=== PATIENT | female | born 1985 | race Caucasian/White ===

== ENCOUNTER 2019-01-12 08:00 | Outpatient (CLI) | payer OTHER | END 2019-01-12 23:59 | disposition home or self-care (01) | LOC: LAB.WCP 08:00 | PROVIDERS: ATTEND Nurse Practitioner Obstetrics & Gynecology | DX: O46.91 Antepartum hemorrhage, unspecified, first trimester (principal) | CPT/HCPCS: 36415; 84702; 86850; 86900; 86901 ==

== ENCOUNTER 2019-01-14 14:50 | Outpatient (CLI) | payer OTHER | END 2019-01-14 14:51 | disposition home or self-care (01) | LOC: LAB.WCP 14:50 | PROVIDERS: ATTEND Nurse Practitioner Obstetrics & Gynecology | DX: O46.91 Antepartum hemorrhage, unspecified, first trimester (principal) | CPT/HCPCS: 36415; 84702 ==

== ENCOUNTER 2019-01-15 16:22 | Outpatient (CLI) | payer OTHER ==
--- NOTE | 2019-01-15 18:30 | Ultrasound Report ---
Reason: FIRST TRIMESTER VAGINAL BLEED Procedure Date: 01/15/2019 Accession Number: [id number] / [id number] Procedure: US - OB First Trimester CPT Code: FULL RESULT: EXAM: FIRST TRIMESTER OBSTETRIC ULTRASOUND (Less than 11 weeks) EXAM DATE: 01/15/2019 04:57 PM. CLINICAL HISTORY: FIRST TRIMESTER VAGINAL BLEED. LMP: 11/05/2018. COMPARISONS: None. TECHNIQUE: Transabdominal and transvaginal ultrasound examination with static image documentation. CLINICAL DATES: EGA 10 weeks 1 day with ALEXEI 08/12/2019 based on LMP. ASSESSMENT: Gestational Sac: Single intrauterine. Embryo: CRL (crown-rump length) 41 mm = 11 weeks 0 days. Cardiac activity: 154 beats per minute. Yolk sac: 6 mm. Amniotic fluid: Not accurately assessed at this gestational age. Early placenta: Posterior placenta seen. Other: No perigestational fluid collection demonstrated. MATERNAL STRUCTURES: Uterus: Anteverted. Unremarkable. Cervix: Closed. Right Ovary/Adnexa: The ovary measures 3.5 x 1.3 x 1.3 cm, volume 3.1 cc. Unremarkable. Left Ovary/Adnexa: The ovary measures 3.4 x 2.4 x 2.4 cm, volume 10 cc. 1.6 x 1.7 x 1.9. Free Fluid: None. Other: Trace endocervical fluid with hyperechoic focus likely blood products. IMPRESSION: 1. Single viable intrauterine at EGA 11 weeks 0 days with ALEXEI 08/06/2019 based on crown-rump length. 2. Normal ovaries. 3. Trace endocervical fluid. [facility] The call report notification system was initiated by Dr. Travis Suárez at 06:28 PM on 01/15/2019.
== END 2019-01-15 16:23 | disposition home or self-care (01) ==
LOC: DI 16:22
PROVIDERS: ATTEND Obstetrics & Gynecology
DX: O46.91 Antepartum hemorrhage, unspecified, first trimester (principal); Z3A.11 11 weeks gestation of pregnancy
CPT/HCPCS: 76801; 76817

== ENCOUNTER 2019-01-22 08:00 | Outpatient (CLI) | payer OTHER ==
[2019-01-22 17:25] LABS: MUDS CUTOFF CONCENTRATIONS CUTOFF CONC BELOW:
[2019-01-22 17:50] LABS: BILIRUBIN,URINE NEGATIVE (NEGATIVE); GLUCOSE, URINE (UA) NEGATIVE (NEGATIVE); KETONES,URINE (UA) NEGATIVE (NEGATIVE); LEUKOCYTE ESTERASE, URINE NEGATIVE (NEGATIVE); NITRITE,URINE NEGATIVE (NEGATIVE); OCCULT BLOOD,URINE NEGATIVE (NEGATIVE); PROTEIN,URINE NEGATIVE (NEGATIVE); UROBILINOGEN,URINE 0.2 (NORMAL) E.U./dL (NORMAL)
[2019-01-22 18:06] LABS: AMPHETAMINE SCREEN,URINE NEGATIVE (NEGATIVE); BENZODIAZEPINES SCREEN, URINE NEGATIVE (NEGATIVE); COCAINE SCREEN URINE NEGATIVE (NEGATIVE); METHADONE SCREEN, URINE NEGATIVE (NEGATIVE); METHAMPHETAMINES SCREEN, URINE NEGATIVE (NEGATIVE); OPIATE SCREEN, URINE NEGATIVE (NEGATIVE); OXYCODONE SCREEN, URINE NEGATIVE (NEGATIVE); PROPOXYPHENE SCREEN, URINE NEGATIVE (NEGATIVE); TRICYCLIC ANTIDEPRESSANT,URINE NEGATIVE (NEGATIVE)
[2019-01-22 18:08] LABS: CLARITY,URINE HAZY (CLEAR)
[2019-01-22 18:21] LABS: BACTERIA,URINE Many /HPF (None Seen); MUCUS,URINE Few Strands; RBC,URINE None Seen /HPF (0-5); SQUAMOUS EPITHELIAL CELL,UR MANY Squamous (<= Few)
== END 2019-01-22 23:59 | disposition home or self-care (01) ==
LOC: LAB.R 08:00
PROVIDERS: ATTEND Nurse Practitioner Obstetrics & Gynecology
DX: Z36.89 Encounter for other specified antenatal screening (principal)
CPT/HCPCS: 36415; 80306; 81001; 81599; 85025; 86592; 86762; 86803; 86850; 86900; 86901; 87086; 87340; 87389

== ENCOUNTER 2019-01-22 08:00 | Outpatient (CLI) | payer OTHER ==
[2019-01-22 18:47] LABS: BASOPHILS % (AUTO) 0.3 %; EOSINOPHILS # (AUTO) 0.1 10^3/uL (0.0-0.7); EOSINOPHILS % (AUTO) 0.7 %; HGB - HEMOGLOBIN 12.9 g/dL (12.0-16.0); LYMPHOCYTES # (AUTO) 1.9 10^3/uL (1.5-3.5); LYMPHOCYTES % (AUTO) 25.6 %; MEAN CORPUSCULAR HEMOGLOBIN 30.4 pg (27.0-31.0); MEAN CORPUSCULAR HGB CONC 32.9 g/dL (32.0-36.0); MEAN CORPUSCULAR VOLUME 92.4 fL (81.0-99.0); MEAN PLATELET VOLUME 7.8 fL (7.9-10.8); MONOCYTES # (AUTO) 0.5 10^3/uL (0.0-1.0); MONOCYTES % (AUTO) 6.8 %; NEUTROPHILS # (AUTO) 4.9 10^3/uL (1.5-6.6); NEUTROPHILS % (AUTO) 66.6 %; PLT - PLATELET COUNT 289 10^3/uL (130-450); RED BLOOD COUNT 4.23 10^6/uL (4.20-5.40); RED CELL DISTRIBUTION WIDTH 13.8 % (12.0-15.0); WHITE BLOOD COUNT 7.4 x10^3/uL (4.8-10.8)
[2019-01-23 10:07] LABS: HEPATITIS C ANTIBODY NON-REACTIVE (NON-REACTIVE)
[2019-01-23 10:08] LABS: HEPATITIS B SURFACE ANTIGEN NON-REACTIVE (NON-REACTIVE)
[2019-01-23 13:17] LABS: HIV AG/AB 4TH GEN NON-REACTIVE (NON-REACTIVE)
== END 2019-01-22 23:59 | disposition home or self-care (01) ==
LOC: LAB.WCP 08:00
PROVIDERS: ATTEND Nurse Practitioner Obstetrics & Gynecology
DX: Z36.89 Encounter for other specified antenatal screening (principal)
CPT/HCPCS: 36415; 81599; 85025; 86762; 86803; 86850; 86900; 86901; 87340; 87389

== ENCOUNTER 2019-01-26 07:13 | Outpatient (CLI) | payer SELFPAY | END 2019-01-26 07:14 | disposition home or self-care (01) | LOC: LAB 07:13 | PROVIDERS: ATTEND Nurse Practitioner Obstetrics & Gynecology | DX: Z36.8A Encounter for antenatal screening for other genetic defects (principal) | CPT/HCPCS: 36415 ==

== ENCOUNTER 2019-04-02 13:32 | Outpatient (CLI) | payer OTHER ==
--- NOTE | 2019-04-04 14:58 | Ultrasound Report ---
Reason: SCREENING,OTHER SPECIFIED Procedure Date: 04/02/2019 Accession Number: [id number] / [id number] Procedure: US - OB Detailed Eval CPT Code: FULL RESULT: EXAM: COMPLETE OBSTETRICAL ULTRASOUND EXAM DATE: 04/02/2019 04:33 PM. CLINICAL HISTORY: anatomic survey. COMPARISON: 01/15/2019. TECHNIQUE: Real-time sonographic evaluation of the fetus performed by the mapping analyst. Multiple insurance representative static images were saved for review. DATING: Established EGA 21 weeks 1 day with ALEXEI 08/12/2019 based on stated due date. EGA weeks/days with ALEXEI based on LMP/prior ultrasound/other. EGA 21 weeks 3 days with ALEXEI 08/10/2019 based on the current ultrasound. GENERAL EVALUATION [place] . Cardiac activity: 151 bpm. movement: Visualized. Presentation: Cephalic. Placenta: Posterior position. No evidence for previa. Umbilical cord: 3 vessel cord. Central placental cord origin. Amniotic fluid: Subjectively normal. MVP 4.0 cm. VIRGEN 13.8 cm. BIOMETRY Bi-Parietal Diameter (BPD): 4.9 cm, 20 weeks 6 days Head Circumference (HC): 19.8 cm, 22 weeks 0 days Abdominal Circumference (AC): 17.2 cm, 22 weeks 1 day Femur Length (FL): 3.7 cm, 21 weeks 5 days Estimated Weight: 457 g, 82 percentile. ANATOMY The four-chamber heart, LVOT and RVOT were not adequately visualized on this study. The intracranial structures, profile, face/nose/lips, spine, stomach, abdominal wall and cord insertion, diaphragm, kidneys, bladder, and extremities were visualized and demonstrate no abnormality. MATERNAL STRUCTURES Uterus: Unremarkable. Cervix: Long and closed. Transabdominal length 3.6 cm. Right ovary/adnexa: Unremarkable. Left ovary/adnexa: Unremarkable. Free fluid: None. IMPRESSION: 1. [place] live intrauterine with gestational age 21 weeks 3 days based on this exam which correlates well with the assigned due date of 08/12/2019. 2. EFW of 82nd percentile. 3. No anatomic abnormality was detected. Note however that the heart was suboptimally visualized and follow-up ultrasound in 2 weeks suggested for completion. [facility]
== END 2019-04-02 13:33 | disposition home or self-care (01) ==
LOC: DI 13:32
PROVIDERS: ATTEND Nurse Practitioner Obstetrics & Gynecology
DX: Z36.89 Encounter for other specified antenatal screening (principal)
CPT/HCPCS: 76811

== ENCOUNTER 2019-04-16 08:01 | Outpatient (CLI) | payer OTHER ==
--- NOTE | 2019-04-17 15:14 | Ultrasound Report ---
Reason: SCREENING, OTHER SPECIFIED Procedure Date: 04/16/2019 Accession Number: [id number] / [id number] Procedure: US - OB F/U or Repeat CPT Code: FULL RESULT: EXAM: FOLLOW-UP OBSTETRICAL ULTRASOUND EXAM DATE: 04/16/2019 09:04 AM. CLINICAL HISTORY: Completion of anatomic survey. Suboptimal cardiac imaging on prior exam. COMPARISON: OB DETAILED EVAL 04/02/2019 2:15 PM. TECHNIQUE: Real-time sonographic evaluation of the fetus performed by the corporate compliance officer. Multiple new accounts representative static images were saved for review. DATING: Established EGA 23 weeks 1 day with ALEXEI 08/12/2019 based on LMP. EGA 24 weeks 0 days with ALEXEI 08/06/2019 based on initial ultrasound. GENERAL EVALUATION [place] . Cardiac activity: 147 bpm. movement: Visualized. Presentation: Cephalic. Placenta: Posterior position. Amniotic fluid: Normal. VIRGEN 13.3 cm. MVP 3.6 cm. ANATOMY Evaluation demonstrates unremarkable four-chamber heart, LVOT, and RVOT. IMPRESSION: 1. [place] live intrauterine with gestational age 23 weeks 1 day based on LMP. 2. Unremarkable cardiac imaging. [facility]
== END 2019-04-16 08:02 | disposition home or self-care (01) ==
LOC: DI 08:01
PROVIDERS: ATTEND Nurse Practitioner Obstetrics & Gynecology
DX: Z36.89 Encounter for other specified antenatal screening (principal)
CPT/HCPCS: 76816

== ENCOUNTER 2019-05-19 11:24 | Outpatient (CLI) | payer OTHER ==
[2019-05-19 12:55] LABS: HGB - HEMOGLOBIN 11.8 g/dL (12.0-16.0); MEAN CORPUSCULAR HEMOGLOBIN 30.3 pg (27.0-31.0); MEAN CORPUSCULAR HGB CONC 32.5 g/dL (32.0-36.0); MEAN CORPUSCULAR VOLUME 93.3 fL (81.0-99.0); RED BLOOD COUNT 3.89 10^6/uL (4.20-5.40); RED CELL DISTRIBUTION WIDTH 13.7 % (12.0-15.0); WHITE BLOOD COUNT 9.3 x10^3/uL (4.8-10.8)
== END 2019-05-19 11:25 | disposition home or self-care (01) ==
LOC: LAB 11:24
PROVIDERS: ATTEND Obstetrics & Gynecology
DX: Z36.89 Encounter for other specified antenatal screening (principal)
CPT/HCPCS: 36415; 82950; 85027; 86850